=== PATIENT | female | born 1980 | race Caucasian/White ===

== ENCOUNTER → 2021-05-06 11:53 | Outpatient (CLI) | payer OTHER, SELFPAY ==
[2021-05-06 14:23] LABS: hCG Titer Quant., Serum 251 mIU/mL (1-3)
[2021-05-06 14:27] LABS: Progesterone Level 45.89 ng/mL (See Comment)
== END ==
PROVIDERS: PCP Family Medicine; Referring Provider Obstetrics & Gynecology; Visit Provider Obstetrics & Gynecology
DX: Z34.90 Encounter for supervision of normal pregnancy, unspecified, unspecified trimester (principal)
CPT/HCPCS: 36415; 84144; 84702

== ENCOUNTER → 2021-05-08 10:23 | Outpatient (CLI) | payer OTHER, SELFPAY ==
[2021-05-08 12:37] LABS: Progesterone Level 12.23 ng/mL (See Comment); hCG Titer Quant., Serum 546 mIU/mL (1-3)
== END ==
PROVIDERS: PCP Family Medicine; Referring Provider Obstetrics & Gynecology; Visit Provider Obstetrics & Gynecology
DX: O09.299 Supervision of pregnancy with other poor reproductive or obstetric history, unspecified trimester (principal); Z3A.00 Weeks of gestation of pregnancy not specified
CPT/HCPCS: 36415; 84144; 84702

== ENCOUNTER → 2021-05-30 10:34 | Outpatient (CLI) | payer SELFPAY ==
[2021-05-30 11:44] LABS: Absolute Lymphocyte Count 1.72 X10^3/uL (0.83-4.51); Absolute Neutrophil Count 6.1 X10^3/uL (2.0-7.7); Basophil# 0.03 X10^3/uL; Basophil% 0.4 % (0-1); Eosinophil# 0.12 X10^3/uL; Eosinophils% 1.4 % (0-5); Hematocrit 36.2 % (37-47); Hemoglobin 12.1 g/dL (12.0-15.0); Lymphocyte # 1.72 X10^3/ul (0.83-4.51); Lymphocyte % 20.2 % (19-41); Mean Corp Hgb Conc 33.4 g/dL (32-36); Mean Corpuscular Hgb 27.7 pg (27.0-32.0); Mean Corpuscular Volume 82.8 fL (81-99); Mean Platelet Vol. 8.8 fl (6.2-12.0); Monocyte# 0.53 X10^3/uL; Monocyte% 6.2 % (0-10); NRBC Flagged by Analyzer 0 % (0-5); Neutrophil # 6.09 X10^3/uL (2.7-7.7); Neutrophil % 71.3 % (47-70); Platelet Count 368 K/mm3 (150-450); RBC Distribution Width SD 41.7 fl (35.1-43.9); Red Blood Count 4.37 M/mm3 (4.2-5.4); White Blood Count 8.5 K/mm3 (4.4-11.0)
[2021-05-30 12:07] LABS: Glucose Challenge Gest 1H 50g 175 mg/dL (70-140)
[2021-05-30 12:21] LABS: Rubella IgG Reactive (Nonreactive)
[2021-06-06 16:09] LABS: HPV APTIMA, High Risk Positive (Negative)
== END ==
PROVIDERS: PCP Family Medicine; Referring Provider Obstetrics & Gynecology; Visit Provider Obstetrics & Gynecology
DX: O09.90 Supervision of high risk pregnancy, unspecified, unspecified trimester (principal); O99.210 Obesity complicating pregnancy, unspecified trimester; E66.9 Obesity, unspecified; Z3A.00 Weeks of gestation of pregnancy not specified; Z12.4 Encounter for screening for malignant neoplasm of cervix
CPT/HCPCS: 36415; 82950; 85025; 86762; 86850; 86900; 86901; 87086; 87088; 87624; 88175; G0145

== ENCOUNTER → 2021-07-04 | Outpatient (CLI) | payer OTHER, SELFPAY ==
--- NOTE | 2021-07-04 | IMM_PTH ---
PATIENT: EMILIANO MATA LOC: [facility] U#:[id number] AGE/SX: 41/F ROOM: RE07/04/[address]: Dr. Angelina Simpson DO : 1980 BED: DIS: 07/04/2021 SPEC #: [id number] RECD: 07/05/21 13:47 STATUS: FLOYD REPenny #: [id number] NANETTE: 07/04/21 00:[address]: Angelina Simpson DEPT: IMMUNOHISTOCHEMISTRY RECD BY: Katie Hankins ENTERED: 07/05/21 13:47 SP TYPE: IMMUNO OTHR DR: Dr. Rubio Byrd MD Tissues: Uterine cervix, NOS Procedures: p16 (initial) KI-67 (add) PHYSICIAN & INSTITUTION [place] [id number] SPECIMEN INFORMATION: Tissue Source: Cervix at 12 o?clock Clinical Info: NELY, HPV positive Specimen Number: [id number] CPT code: 77804, 18471 METHODOLOGY: Deparaffinized sections of prefer/formalin-fixed tissue or PAP/DQ stained slides are incubated with monoclonal/polyclonal antibodies/oligonucleotide probes. Localization is made via biotin free immunoperoxidase method. Appropriate controls are performed and reacted as expected. Results on target cell population are indicated in the following table: RESULTS: ANTIBODY / CLONE RESULT P16 (E6H4) positive, focal patchy staining Ki-67 (30-9) positive, low These tests were developed and their performance characteristics determined by [facility]. They may not have been cleared or approved by the U.S. Food and Drug Administration. The FDA has determined that such clearance or approval is not necessary. The above immunohistochemical/dualISH markers are ordered and reviewed by the Pathologist. INTERPRETATION: Cervix at 12 o?clock, biopsy: Mild squamous dysplasia. TAVIA:malena 07/05/2021
--- NOTE | 2021-07-04 | CER_PTH ---
PATIENT: EMILIANO MATA LOC: [facility] U#:[id number] AGE/SX: 41/F ROOM: RE07/04/[address]: Dr. Angelina Simpson DO : 1980 BED: DIS: 07/04/2021 SPEC #: [id number] RECD: 07/04/21 12:35 STATUS: FLOYD TRISTANPenny #: [id number] NANETTE: 07/04/21 00:[address]: Angelina Simpson DEPT: SURGICAL PATHOLOGY RECD BY: Desmond Ham ENTERED: 07/04/21 12:36 SP TYPE: CERV OTHR DR: Dr. Rubio Byrd MD Tissues: Uterine cervix, NOS Procedures: Surgery Specimen Level IV HEADER OPERATION: Colposcopy PRE-OP DIAGNOSIS: LGSIL, HPV positive TISSUE SUBMITTED: 12 o?clock MICROSCOPIC DIAGNOSIS Cervix, 12 o?clock, biopsy: Focal mild squamous dysplasia with HPV changes (LGSIL, ANGELIQUE I). Focal acute and chronic inflammation. See comment. TAVIA:malena 07/05/2021 COMMENT Immunohistochemistry ([id number]) for surrogate HPV marker (p16) supports the above diagnosis. MICROSCOPIC DESCRIPTION Slides are reviewed. GROSS DESCRIPTION Received in fixative is one container labeled with the patient's name and designated 12 o'clock. The specimen consists of one irregular fragment of light clark soft tissue that measures 0.5 x 0.5 x 0.1 cm. The specimen is totally submitted in one cassette. / TAVIA:malena 07/04/21 TC:5 CPT: 53099
== END | disposition home or self-care (01) ==
LOC: LABSPEC 12:29
PROVIDERS: PCP Family Medicine; Visit Provider Obstetrics & Gynecology
DX: N87.0 Mild cervical dysplasia (principal)
CPT/HCPCS: 88305; 88341; 88342

== ENCOUNTER → 2021-07-08 07:01 | Outpatient (CLI) | payer OTHER, SELFPAY ==
[2021-06-24 13:26] LABS: Glucose Challenge Gest 1H 50g 153 mg/dL (70-140)
[2021-07-08 08:21] LABS: Glucose GTT-Gestation. Fasting 95 mg/dL (<105)
[2021-07-08 09:35] LABS: Glucose GTT-Gestational 1 Hr 205 mg/dL (<190)
[2021-07-08 09:51] LABS: Glucose GTT-Gestational 2 Hr 167 mg/dL (<165)
[2021-07-08 11:22] LABS: Glucose GTT-Gestational 3 Hr 85 L (<145)
== END ==
PROVIDERS: Nurse Practitioner Women's Health; Obstetrics & Gynecology; PCP Family Medicine; Referring Provider Obstetrics & Gynecology; Visit Provider Obstetrics & Gynecology
DX: Z13.1 Encounter for screening for diabetes mellitus (principal)
CPT/HCPCS: 36415; 82950; 82951; 82952

== ENCOUNTER 2021-07-24 12:13 | Outpatient (RCR) | payer SELFPAY | END 2021-08-02 23:59 | LOC: DC 12:13 | PROVIDERS: PCP Family Medicine; Visit Provider Nurse Practitioner Women's Health | DX: O24.419 Gestational diabetes mellitus in pregnancy, unspecified control (principal); Z3A.00 Weeks of gestation of pregnancy not specified | CPT/HCPCS: 97802 ==

== ENCOUNTER 2021-07-31 11:00 | Outpatient (RCR) | payer SELFPAY | END 2021-08-02 23:59 | LOC: DC 11:00 | PROVIDERS: PCP Family Medicine; Visit Provider Nurse Practitioner Women's Health | DX: O24.419 Gestational diabetes mellitus in pregnancy, unspecified control (principal); Z3A.00 Weeks of gestation of pregnancy not specified ==

== ENCOUNTER 2021-08-14 08:30 | Outpatient (RCR) | payer SELFPAY | END 2021-09-02 23:59 | LOC: DC 08:30 | PROVIDERS: PCP Family Medicine; Visit Provider Nurse Practitioner Women's Health | DX: O24.419 Gestational diabetes mellitus in pregnancy, unspecified control (principal); Z3A.00 Weeks of gestation of pregnancy not specified ==

== ENCOUNTER 2021-08-15 08:15 | Outpatient (CLI) | payer SELFPAY ==
--- NOTE | 2021-08-15 08:17 | US_ITS ---
STUDY: SECOND AND THIRD TRIMESTER OBSTETRICAL ULTRASOUND REASON FOR EXAM: Female, 41 years old 20 week anatomy scan LMP: 04/04/2021 TECHNIQUE: Transabdominal and Transvaginal TECHNICAL QUALITY: Adequate. PRIOR ULTRASOUND: None. FINDINGS: There is a single intrauterine fetus. The fetus is in a breech presentation. There is demonstrated cardiac activity with a heart rate of 155 bpm. There is a normal amniotic fluid volume. The largest amniotic fluid pocket measures 3.1 cm x 2.8 cm. The amniotic fluid index (ZO) is within normal limits. The placenta is anterior in location and is not low lying. There are Grade 1 placental changes. The cervix measures 4.1 cm in length. The bilateral adnexal regions are normal. BIOMETRY: BPD: 4.3 cm: 18 weeks, 6 days HC: 16.6 cm: 19 weeks, 1 days AC: 13.2 cm: 18 weeks, 4 days FL: 2.8 cm: 18 weeks, 4 days CI: 76% FL/BPD: 66% FL/HC: FL/AC: 21% HC/AC: 1.25 age by current US: 18 weeks, 5 days. DEX by current US: 01/11/2022. Estimated weight: 254 grams, +/- 38 grams, 30 %. Age by LMP: 19 weeks, 0 days. DEX by LMP: 01/09/2022. ANATOMY: Gender: Male Cranium: Normal lateral ventricles. Normal choroid plexus. Normal cerebellum. Normal cisterna magna. Normal face, nose and lips. Chest: Normal 4-chamber heart. Abdomen/Pelvis: Normal diaphragm. Normal stomach. Normal abdominal wall. Normal cord insertion. Normal 3 vessel cord. Placental cord insertion is marginal. Normal kidneys. Normal bladder. Spine: Limited visualization of the spine due to the positioning. Extremities: Normal bilateral upper extremities. Normal bilateral lower extremities. IMPRESSION: Single live intrauterine gestation with mean gestational age of 18 weeks and 5 days. Limited visualization of the spine due to the position. Marginal cord insertion and the placenta. Electronically Signed: Dayron Handley MD at 12:28 EST , Service support , STUDY: FIRST TRIMESTER OBSTETRICAL ULTRASOUND REASON FOR EXAM: Female, 41 years old 20 week anatomy scan LMP: 04/04/2021 TECHNIQUE: Transvaginal TECHNICAL QUALITY: Adequate. PRIOR ULTRASOUND: None. FINDINGS: The cervical length measures 4.1 cm. US/OB Anatomy Scan IMPRESSION: Cervical measurement is 4.1 cm Electronically Signed: Dayron Handley MD at 12:28 EST , Service support ,
== END 2021-08-15 23:59 | disposition short-term general hospital (02) ==
PROVIDERS: PCP Family Medicine; Referring Provider Obstetrics & Gynecology; Visit Provider Obstetrics & Gynecology
DX: O09.90 Supervision of high risk pregnancy, unspecified, unspecified trimester (principal); Z3A.00 Weeks of gestation of pregnancy not specified
CPT/HCPCS: 76805; 76817

== ENCOUNTER 2021-09-09 13:50 | Outpatient (CLI) | payer SELFPAY, OTHER ==
--- NOTE | 2021-09-09 13:58 | US_ITS ---
STUDY: SECOND AND THIRD TRIMESTER OBSTETRICAL ULTRASOUND - LIMITED REASON FOR EXAM: Female, 41 years old anatomy follow up spine views LMP: 04/04/2021. PRIOR ULTRASOUND: Comparison is made with prior examination dated 08/15/2021. TECHNIQUE: Transabdominal TECHNICAL QUALITY: Adequate. FINDINGS: There is a single intrauterine fetus. The fetus is in an transverse lie with the head on the maternal left side. There is demonstrated cardiac activity with a heart rate of 138 bpm. There is a normal amniotic fluid volume. The largest amniotic fluid pocket measures 6.7 cm. The amniotic fluid index (ZO) is within normal limits. The placenta is anterior in location and is not low lying. There are Grade 0 placental changes. The cervix measures 5.6 cm in length. BIOMETRY: Age by LMP: 20 weeks, 4 days. DEX by LMP: 01/09/2022.. Imaging of the cervical, thoracic and lumbar sacral spines was performed. No abnormality is seen. US/OB Limited (No Biometrics) IMPRESSION: Normal appearance of the spine. Electronically Signed: Dayron Handley MD at 15:41 EST ,
== END 2021-09-09 23:59 | disposition home or self-care (01) ==
PROVIDERS: PCP Family Medicine; Referring Provider Nurse Practitioner Women's Health; Visit Provider Nurse Practitioner Women's Health
DX: O09.92 Supervision of high risk pregnancy, unspecified, second trimester (principal); Z3A.19 19 weeks gestation of pregnancy
CPT/HCPCS: 76815

== ENCOUNTER 2021-10-09 12:05 | Outpatient (CLI) | payer OTHER, SELFPAY ==
[2021-10-09 13:48] LABS: Absolute Lymphocyte Count 1.95 X10^3/uL (0.83-4.51); Absolute Neutrophil Count 6.9 X10^3/uL (2.0-7.7); Basophil# 0.03 X10^3/uL; Basophil% 0.3 % (0-1); Eosinophil# 0.14 X10^3/uL; Eosinophils% 1.4 % (0-5); Hematocrit 36.9 % (37-47); Lymphocyte # 1.95 X10^3/ul (0.83-4.51); Lymphocyte % 20.1 % (19-41); Mean Corp Hgb Conc 32.5 g/dL (32-36); Mean Corpuscular Hgb 28.2 pg (27.0-32.0); Mean Corpuscular Volume 86.6 fL (81-99); Mean Platelet Vol. 9.2 fl (6.2-12.0); Monocyte# 0.68 X10^3/uL; NRBC Flagged by Analyzer 0 % (0-5); Neutrophil # 6.86 X10^3/uL (2.7-7.7); Neutrophil % 70.8 % (47-70); Platelet Count 354 K/mm3 (150-450); RBC Distribution Width CV 13.6 % (11.6-14.6); RBC Distribution Width SD 42.4 fl (35.1-43.9); Red Blood Count 4.26 M/mm3 (4.2-5.4); White Blood Count 9.7 K/mm3 (4.4-11.0)
== END 2021-10-09 23:59 | disposition home or self-care (01) ==
LOC: LAB 12:07
PROVIDERS: PCP Family Medicine; Visit Provider Obstetrics & Gynecology
DX: O09.90 Supervision of high risk pregnancy, unspecified, unspecified trimester (principal); Z3A.00 Weeks of gestation of pregnancy not specified
CPT/HCPCS: 36415; 85025

== ENCOUNTER 2021-11-14 08:44 | Outpatient (CLI) | payer SELFPAY, OTHER ==
--- NOTE | 2021-11-14 08:45 | US_ITS ---
STUDY: SECOND AND THIRD TRIMESTER OBSTETRICAL ULTRASOUND - LIMITED REASON FOR EXAM: Female, 41 years old growth @ 32 and 36 weeks LMP: 04/04/2021. PRIOR ULTRASOUND: Comparison is made with prior study dated 09/09/2021. TECHNIQUE: Transabdominal TECHNICAL QUALITY: Adequate. FINDINGS: There is a single intrauterine fetus. The fetus is in a cephalic presentation. There is demonstrated cardiac activity with a heart rate of 134 bpm. There is a normal amniotic fluid volume. The largest amniotic fluid pocket measures 7.81 cm. The amniotic fluid index (ZO) is 20.4 cm. The placenta is anterior in location and is not low lying. There are Grade 1 placental changes. The cervix measures 3.5 cm in length. BIOMETRY: BPD: 7.83 cm: 31 weeks, 3 days HC: 29.82 cm: 33 weeks, 1 days AC: 27.87 cm: 32 weeks, 0 days FL: 5.97 cm: 31 weeks, 1 days Age by LMP: 32 weeks, 0 days. DEX by LMP: 01/09/2022. age by prior US: 31 weeks, 5 days. DEX by prior US: 01/11/2022. age by current US: 32 weeks, 0 days. DEX by current US: 01/09/2022. Estimated weight: 1827 grams, +/- 260 grams, 31 percentile. US/OB Limited With Biometrics IMPRESSION: Single live intrauterine gestation with mean gestational age of 31 weeks and 5 days. The measurements obtained today following within the normal expected range. Electronically Signed: Dayron Handley MD at 10:17 EDT ,
== END 2021-11-14 23:59 | disposition home or self-care (01) ==
LOC: US 08:45
PROVIDERS: PCP Family Medicine; Referring Provider Nurse Practitioner Women's Health; Visit Provider Nurse Practitioner Women's Health
DX: O09.90 Supervision of high risk pregnancy, unspecified, unspecified trimester (principal)
CPT/HCPCS: 76816

== ENCOUNTER → 2021-12-12 | Outpatient (CLI) | payer SELFPAY, OTHER ==
--- NOTE | 2021-12-12 08:55 | US_ITS ---
STUDY: SECOND AND THIRD TRIMESTER OBSTETRICAL ULTRASOUND REASON FOR EXAM: Female, 41 years old growth LMP: 04/04/2021 TECHNIQUE: Transabdominal TECHNICAL QUALITY: Adequate. PRIOR ULTRASOUND: Comparison is made with prior study 11/14/2021. FINDINGS: There is a single intrauterine fetus. The fetus is in a cephalic presentation. There is demonstrated cardiac activity with a heart rate of 133 bpm. There is a normal amniotic fluid volume. The largest amniotic fluid pocket measures 4.6 cm. The amniotic fluid index (ZO) is 12.63 cm. The placenta is anterior in location and is not low lying. There are Grade 1 placental changes. The cervix measures 3.3 cm in length. The adnexal regions are not visualized. BIOMETRY: BPD: 8.69 cm: 35 weeks, 1 days HC: 32.83 cm: 37 weeks, 3 days AC: 32.83 cm: 36 weeks, 6 days FL: 6.69 cm: 34 weeks, 3 days CI: 75% FL/BPD: 77% FL/HC: FL/AC: 20% HC/AC: 1.00 age by current US: 36 weeks, 0 days. DEX by current US: 01/09/2022. Estimated weight: 2832 grams, +/- 413 grams, 52 %. age by prior US: 36 weeks, 0 days. DEX by prior US: 01/09/2022. Age by LMP: 30 weeks, 0 days. DEX by LMP: 01/09/2022. A thin linear membrane is seen in the right upper quadrant of the uterus. This may represent either chorionic amniotic separation versus possible amniotic band. US/OB Limited With Biometrics IMPRESSION: Single live uterine gestation with a gestational age of 36 weeks. The measurements obtained today following the normal expected range. Thin linear membrane is seen in the right upper quadrant of the uterus. Electronically Signed: Dayron Handlye MD at 15:22 EDT ,
== END | disposition home or self-care (01) ==
LOC: OPUS 08:45 → US 08:47
PROVIDERS: PCP Family Medicine; Referring Provider Nurse Practitioner Women's Health; Visit Provider Obstetrics & Gynecology
DX: O09.90 Supervision of high risk pregnancy, unspecified, unspecified trimester (principal)
CPT/HCPCS: 76816; 87077; 87081; 87186

== ENCOUNTER 2021-12-15 17:46 | Inpatient (IN) | payer SELFPAY, OTHER ==
[2021-12-15] VITALS (35 sets, daily range): BP systolic 118–159; BP diastolic 57–87; PULSE 86–126; RESP 16; TEMP 36.2–37.3; O2SAT 93–100; BMI 49.1
[2021-12-15] MEDS: Lactated Ringers 1,000 ML 999 ML IV ×2 (18:04→23:55)
[2021-12-15 18:43] LABS: Absolute Neutrophil Count 8.5 X10^3/uL (2.0-7.7); Basophil# 0.03 X10^3/uL; Basophil% 0.3 % (0-1); Eosinophil# 0.14 X10^3/uL; Eosinophils% 1.2 % (0-5); Hematocrit 36.1 % (37-47); Hemoglobin 12.2 g/dL (12.0-15.0); Lymphocyte % 15.1 % (19-41); Mean Corp Hgb Conc 33.8 g/dL (32-36); Mean Corpuscular Hgb 28.1 pg (27.0-32.0); Mean Corpuscular Volume 83.2 fL (81-99); Mean Platelet Vol. 9.2 fl (6.2-12.0); Monocyte# 0.74 X10^3/uL; Monocyte% 6.6 % (0-10); NRBC Flagged by Analyzer 0 % (0-5); Neutrophil # 8.53 X10^3/uL (2.7-7.7); Platelet Count 304 K/mm3 (150-450); RBC Distribution Width CV 13.7 % (11.6-14.6); RBC Distribution Width SD 41.6 fl (35.1-43.9); Red Blood Count 4.34 M/mm3 (4.2-5.4); White Blood Count 11.2 K/mm3 (4.4-11.0)
[2021-12-15 19:07] LABS: AST(SGOT) 10 U/L (15-37); Alanine Aminotransfer ALT/SGPT 18 U/L (13-56); Creatinine, Serum 0.46 mg/dL (0.55-1.02); EST Glomerular Filtration Rate 161 mL/min (>60); Est Glom Filt Rate - Afr Amer 194 mL/min (>60); Estimated Creatinine Clearance 128.58 ml/min; Uric Acid 4.6 mg/dL (2.6-6.0)
[2021-12-15 19:19] LABS: Fibrinogen 605 mg/dl (203-444)
[2021-12-15] MEDS: fentaNYL-bupivacaine (epidural) 100 ML BAG EPIDURAL (19:25)
[2021-12-15 19:28] LABS: Protein, Urine (Random) 34.9 mg/dL (<11.9); Protein:Creat Ratio 405 mg/g CRE (0-200)
[2021-12-15 19:40] LABS: Bedside Glucose 91 mg/dL (74-106)
[2021-12-15] MEDS: Lactated Ringers 1,000 ML 200 ML IV (19:45)
[2021-12-15 20:06] LABS: Bedside Glucose 85 mg/dL (74-106)
--- NOTE | 2021-12-15 20:13 | HP.PCM.OB_ITS ---
HPI - General General Date of Admission: 12/15/21 HPI Narrative EMILIANO MATA, is a 41 F who presents with PPROM bloody fluid 3 cm dilated regular ctx good fm diabetes controlled Maternal Data Information EDX Calculator Estimated Delivery Date Method Current WG Current Estimate 01/09/22 Ultrasound #1 36w 3d Other Estimates 01/02/22 LMP (Certain) 37w 3d PFSH PFSH Medical History (Updated 12/15/21 @ 20:[address] Sondra Sesay MD) Gestational diabetes Marginal insertion of umbilical cord Home Medications progesterone micronized 100 mg vaginal insert 1 insert VAGINAL BID 70 Days #60 ea 05/09/21 [Rx Last Taken Unknown] multivitamin 1 tab PO DAILY 05/17/21 [History Last Taken Unknown] promethazine 12.5 mg tablet 12.5 mg PO TID PRN #30 tab 05/17/21 [Rx Last Taken Unknown] blood-glucose meter #1 ea 07/09/21 [Rx Last Taken Unknown] blood sugar diagnostic #50 ea 10/09/21 [Rx Last Taken Unknown] Allergy/AdvReac Type Severity Reaction Status Date / Time No Known Allergies Allergy Verified 12/12/21 11:22 Family History Grandmother Breast cancer Father Myocardial infarction Surgical History H/O dilation and curettage Social History household members: family housing: house number of children: 2 Smoking Status: Never smoker second hand exposure: No substance use type: does not use seatbelt use: always do you feel safe at home: Yes History 8 Elective abortions Hx Para 2 Spontaneous abortions 5 Hx # Term Pregnancies Ectopic pregnancies Hx # Pregnancies Multiple births # of living children 2 Past Pregnancies Del. Date Name GA/Weeks Outcome Route Bth Weight Infant Gen Labor Lgth Anesthesia Del Locatn Provider FOB Unknown 04/19/02- Farzana 38 live - full term 7lbs 8.5 oz Female [facility] [address]. May Geller Unknown 04/06/12- Julito 40 live - full term 8lbs 3o z [facility] Delivery Date: no complications Linad Sykesily Delivery Date: no complications Stefany Sykes Visit Details Expected Delivery Route/Plan Labor Preferences- CB/BF classes: no labor support person: Yimi labor intervention preferences: [] pain management options preferred: limited intervention preferred cut cord/dad catch: cord maybe : yes PP control planned: discussed discussed possible routes of delivery and associated risks: [] special requests: [] Plans Covid status: Flu vaccine: declines Tdap vaccine: declines Rhogam: na LARC form signed: yes Problem list reviewed and updated with the most current plan of care details and appropriate orders placed. Relevant counseling for the gestational age provided. Continue routine care and follow up unless otherwise noted in visit notes/problem list details OB Flowsheet Initial Weight: Not Recorded Date -?-?-?-?-?-?-?-?-?-?-?-?- EGA Weight BP Urine Prot -?-?-?-?-?-?-?-?-?-?-?-?- Glucose FHR FuHt Pres Dilation -?-?-?-?-?-?-?-?-?-?-?-?- Effaced St Visit Note 05/30/21 -?-?-?-?-?-?-?-?-?-?-?-?- 8w 0d 253 lb 2 oz 130/80 -?-?-?-?-?-?-?-?-?-?-?-?- -?-?-?-?-?-?-?-?-?-?-?-?- CRL 8w0d, one we ek off from LMP. New DEX given. 06/24/21 -?-?-?-?-?-?-?-?-?-?-?-?- 11w 4d 254 lb 6 oz 124/68 Trac e -?-?-?-?-?-?-?-?-?-?-?-?- Negative 166 -?-?-?-?-?-?-?-?--?-?-?-?- No VB, LOF. Br US confirm live IUP. Will repeat 1 hr GCT today. Declines flu vaccine. Order [facility] anatomy US. 07/04/21 -?-?-?-?-?-?-?-?-?-?-?-?- 13w 0d 253 lb 6 oz 130/70 Nega tive -?-?-?-?-?-?-?-?-?-?-?-?- Negative -?-?-?-?-?-?-?-?-?-?-?-?- 07/24/21 -?-?-?-?-?-?-?-?-?-?-?-?- 15w 6d 252 lb 4 oz 100/80 Nega tive -?-?-?-?-?-?-?-?-?-?-?-?- Negative 138 -?-?-?-?-?-?-?-?-?-?-?-?- JV- no cramping or spotting. [place] results were ANGELIQUE 1, rpt pap 1 year. 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 glucose levels are normal. anatomy scan done to day. results are pending. 09/13/21 -?-?-?-?-?-?-?-?-?-?-?-?- 23w 1d 256 lb 102/80 -?-?-?-?-?-?-?-?-?-?-?-?- 145 -?-?-?-?-?-?-?-?-?-?-?-?- SM- no vb lof go od fm no reuglar ctx 10/09/21 -?-?-?-?-?-?-?-?-?-?-?-?- 26w 6d 261 lb 110/80 Negative -?-?-?-?-?-?-?-?-?-?-?-?- Negative 147 26 -?-?-?-?-?-?-?-?-?-?-?-?- JV- glucose leve ls are perfect. fasting under 100 or at 100 and 2 hr pp under 140 (ave 1-teens) 10/23/21 -?-?-?-?-?-?-?-?-?-?-?-?- 28w 6d 263 lb 124/68 Negative -?-?-?-?-?-?-?-?-?-?-?-?- Negative 139 29 -?-?-?-?-?-?-?-?-?-?-?-?- MH-No Vb, LOF. G ood FM. Reviewed BS and WNL. 11/06/21 -?-?-?-?-?--?-?-?-?-?-?-?- 30w 6d 260 lb 6 oz 100/78 Nega tive -?-?-?-?-?-?-?-?-?-?-?-?- Negative -?-?-?-?-?-?-?-?-?-?-?-?- JV- no lof, vagi nal bleeding, or dec fm. GLucose levels are excellent currently. no need for medicadtion. 32 week growth scan in 2 weeks. 11/20/21 -?-?-?-?-?-?-?-?-?-?-?-?- 32w 6d 263 lb 4 oz 110/82 Nega tive -?-?-?-?-?-?-?-?-?-?-?-?- Negative 140 36 -?-?-?-?-?-?-?-?-?-?-?-?- JV- no lof, vagi nal bleeding or dec fm. ZO 20 and growth normal. will rpt at 36 weeks. glucose levels are all normal. 12/04/21 -?-?-?-?-?-?-?-?-?-?-?-?- 34w 6d 269 lb 117/80 Negative -?-?-?-?-?-?-?-?-?-?-?-?- Negative 140 37 -?-?-?-?-?-?-?-?-?-?-?-?- JV- no lof, vagi nal bleeding, or dec fm. nst reactive. glucose levels are all normal. 12/12/21 -?-?-?-?-?-?-?-?-?-?-?-?- 36w 0d 267 lb 8 oz 110/82 Nega tive -?-?-?-?-?-?-?-?-?-?-?-?- Negative 130 38 0 -?-?-?-?-?-?-?-?-?-?-?-?- JV- no lof, vagi nal bleeding, or dec fm. gbs collected, NST reactive. fasting glucose levels are 90's - 100 and 2 hrpp are 100-110's 12/15/21 -?-?-?-?-?-?-?-?-?-?-?-?- 36w 3d 268 lb 11.896 oz 159 /80 124/77 129/71 139/69 129/73 132/73 131/75 128/61 126/62 118/57 122/60 132/67 134/73 134/73 128/62 119/60 128/68 Cancelled -?-?-?-?-?-?-?-?-?-?-?-?- -?-?-?-?-?-?-?-?-?-?-?-?- NST FHR Rate Baby A Baseline: 140 Variability:: Moderate Accelerations:: 15 x 15 Decelerations:: Early and Variable (isolated) NST Reactive:: Yes FHR Category:: Category II Uterine Activity:: q3-5 ROS Constitutional Constitutional: Reports systems reviewed and no addt'l complaints, except as documented ENT HEENT: Reports systems reviewed and no addt'l complaints, except as documented Cardiovascular Cardiovascular: Reports systems reviewed and no addt'l complaints, except as documented Respiratory/Chest Respiratory/Chest: Reports systems reviewed and no addt'l complaints, except as documented Gastrointestinal Gastrointestinal: Reports systems reviewed and no addt'l complaints, except as documented and nausea; Denies abdominal pain Genitourinary Genitourinary: Reports systems reviewed and no addt'l complaints, except as documented, contractions Details: present and frequency (regular ) and movement Details: present Musculoskeletal Musculoskeletal: Reports systems reviewed and no addt'l complaints, except as documented Integumentary Integumentary: Reports as per HPI Neurologic Neurologic: Reports systems reviewed and no addt'l complaints, except as documented Endocrine Endocrinology: Reports systems reviewed and no addt'l complaints, except as documented Vital Signs Vital Signs Vital Signs: 12/15/21 18:01 12/15/21 18:18 12/15/21 18:22 Temperature 98.3 F Temperature Source Temporal Pulse Rate 99 88 90 Respiratory Rate Blood Pressure 159/80 H 124/77 H Blood Pressure Mean BP Systolic 159 124 BP Diastolic 80 77 Blood Pressure Source Blood Pressure Position Blood Pressure Location Pulse Ox 93 97 Oxygen Delivery Method 12/15/21 18:33 12/15/21 18:49 12/15/21 19:04 Temperature Temperature Source Pulse Rate 93 97 91 Respiratory Rate Blood Pressure 129/71 H 139/69 H 129/73 H Blood Pressure Mean BP Systolic 129 139 129 BP Diastolic 71 69 73 Blood Pressure Source Blood Pressure Position Blood Pressure Location Pulse Ox Oxygen Delivery Method 12/15/21 19:07 12/15/21 19:12 12/15/21 19:13 Temperature Temperature Source Pulse Rate 94 103 H Respiratory Rate Blood Pressure 132/73 H Blood Pressure Mean BP Systolic 132 BP Diastolic 73 Blood Pressure Source Blood Pressure Position Blood Pressure Location Pulse Ox 98 99 Oxygen Delivery Method 12/15/21 19:18 12/15/21 19:22 12/15/21 19:26 Temperature Temperature Source Pulse Rate 99 99 98 Respiratory Rate Blood Pressure 131/75 H 128/61 H Blood Pressure Mean BP Systolic 131 128 BP Diastolic 75 61 Blood Pressure Source Blood Pressure Position Blood Pressure Location Pulse Ox 98 97 Oxygen Delivery Method 12/15/21 19:28 12/15/21 19:32 12/15/21 19:33 Temperature 97.8 F Temperature Source Temporal Pulse Rate 96 97 Respiratory Rate Blood Pressure 126/62 H 118/57 L Blood Pressure Mean BP Systolic 126 118 BP Diastolic 62 57 Blood Pressure Source Blood Pressure Position Blood Pressure Location Pulse Ox 98 98 Oxygen Delivery Method 12/15/21 19:37 12/15/21 19:38 12/15/21 19:42 Temperature Temperature Source Pulse Rate 94 90 Respiratory Rate Blood Pressure 122/60 H 132/67 H Blood Pressure Mean BP Systolic 122 132 BP Diastolic 60 67 Blood Pressure Source Blood Pressure Position Blood Pressure Location Pulse Ox 97 98 Oxygen Delivery Method 12/15/21 19:48 12/15/21 19:49 12/15/21 19:52 Temperature Temperature Source Pulse Rate 101 H 100 101 H Respiratory Rate Blood Pressure 134/73 H Blood Pressure Mean BP Systolic 134 BP Diastolic 73 Blood Pressure Source Blood Pressure Position Blood Pressure Location Pulse Ox 99 99 Oxygen Delivery Method 12/15/21 19:56 12/15/21 19:58 12/15/21 19:59 Temperature 99.1 F Temperature Source Temporal Pulse Rate 99 86 86 Respiratory Rate 16 Blood Pressure 134/73 H 128/62 H Blood Pressure Mean 93 BP Systolic 128 BP Diastolic 62 Blood Pressure Source Monitor Blood Pressure Position Semi-Fowlers Blood Pressure Location Right Arm Pulse Ox 98 99 Oxygen Delivery Method Room Air 12/15/21 20:03 12/15/21 20:08 12/15/21 20:09 Temperature Temperature Source Pulse Rate 91 92 86 Respiratory Rate Blood Pressure 119/60 128/68 H Blood Pressure Mean BP Systolic 119 128 BP Diastolic 60 68 Blood Pressure Source Blood Pressure Position Blood Pressure Location Pulse Ox 98 97 Oxygen Delivery Method Weight Weight: 268 lb 11.896 oz Body Mass Index (BMI) 49.1 Physical Exam Const alert, oriented x3 and healthy appearing Constitutional Narrative: uncomfortable with contractions HEENT normocephalic and moist oral mucous membranes Head and Scalp: atraumatic Neck full ROM, no lymphadenopathy, supple and thyroid normal General: trachea midline Thyroid: thyroid normal Lymph Lymphatic: no lymphadenopathy noted Chest inspection of chest normal Resp normal respiratory effort Cardio regular rate GI normal to inspection, nondistended, normoactive bowel sounds, soft to palpation and non-tender Inspection: gravid external exam normal Bimanual Exam - Vag & Uterus: uterus non-tender Manual OB Exam: estimated gestational size appropriate, presentation cephalic, dilated 3, effaced 70 and station -2 Extremity normal to inspection General Extremity: Negative for edema Skin no rashes or lesions noted Neuro deep tendon reflexes 2+ bilaterally Motor Exam: strength 5/5 throughout and clonus absent Psych mental status grossly normal Labs Labs Labs: Blood Type A POSITIVE Antibody Screen NEGATIVE Hct 36.1 % (37-47) L Hgb 12.2 g/dL (12.0-15.0) Pap Smear Negative Obstetrics US Syphilis Total Ab Pending Rubella IgG Antibody Reactive (Nonreactive) Hep Bs Antigen Pending HIV 1&2 Antibody Pending Glucose 1 Hr 50 gm 153 mg/dL (70-140) H Group B Strep DNA POSITIVE (Negative-) H Assessment & Plan (1) Marginal insertion of umbilical cord: COMMENT: growth US at 32 & 36 wks, 11/14 nl growth (2) Gestational diabetes mellitus (GDM) affecting : COMMENT: s/p nutrition. declined endocrine cs unless blood sugars are uncontrolled. 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 nl anatomy. SP labs, declined std labs initially, agreed to be done at delivery. hg normal (10) Vagina bleeding: COMMENT: fibrinogen 600 on admission, normal cbc. monitor, reassuring FHTs (11) premature rupture of membranes (PPROM) with unknown onset of labor: (12) Positive GBS test: COMMENT: pcn PLAN: admit epidural now due to bleeding and patient desired. monitor bleeding, alerted anesthesia. overall reassuring. monitor BS per diabetic protocol gbs prophylaxis
[2021-12-15 20:45] LABS: HIV - WCH Non-Reactive (Nonreactive); Hepatitis B Surface Antigen Non-Reactive (Nonreactive); Hepatitis C Antibody Non-Reactive (Nonreactive)
[2021-12-15 21:06] LABS: Bedside Glucose 84 mg/dL (74-106)
[2021-12-15 22:20] LABS: Bedside Glucose 80 mg/dL (74-106)
[2021-12-15] MEDS: Lactated Ringers 500 ML 999 ML IV (22:23)
[2021-12-15 22:59] LABS: Chlamydia Trachomatis by PCR Negative (Negative); Neisserai gonorrhoeae by PCR Negative (Negative); Probe Check PASS; Sample Adequacy Control PASS; Specimen Processing Control PASS
[2021-12-15] MEDS: Penicillin G 3,000,000 Units 50 ML 100 UNITS IV (23:11)
[2021-12-15] MEDS: Amnioinfusion- 0.9% NS 1,000 ML IV.SOLN. INTRA-UTER (23:18)
[2021-12-15] MEDS: Oxytocin 30 units/NS 500 ml 30 UNITS/500 ML IV.SOLN 334 UNITS IV (23:42)
--- NOTE | 2021-12-15 23:59 | OP.PCM_ITS ---
Assessment & Plan (1) Positive GBS test: COMMENT: pcn (2) premature rupture of membranes (PPROM) with unknown onset of labor: (3) Vagina bleeding: COMMENT: fibrinogen 600 on admission, normal cbc. monitor, reassuring FHTs (4) : QUALIFIERS: Weeks of gestation: 36 weeks Qualified Code(s): Z3A.36 - 36 weeks gestation of COMMENT: nipt carrier and ntd declined. nl anatomy. SP labs, declined std labs initially, agreed to be done at delivery. 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 declined endocrine cs unless blood sugars are uncontrolled. (12) Marginal insertion of umbilical cord: COMMENT: growth US at 32 & 36 wks, 11/14 nl growth (13) Vaginal delivery: COMMENT: IAL PPROM SM boy [place] 36 true knot x 2 Maternal Data Information DEX Calculator Estimated Delivery Date Method Current WG Current Estimate 01/09/22 Ultrasound #1 36w 3d Other Estimates 01/02/22 LMP (Certain) 37w 3d Vaginal Delivery Operative Information Pre-Operative Diagnosis: IAL Post-Operative Diagnosis: same Surgery / Procedure Performed: Spontaneous Vaginal Delivery Type of Anesthesia: Epidural Special Medications: none Estimated Blood Loss: 100 Fluids Replaced: crystalloid Findings Description of Procedure: Patient began pushing and delivered the head in the DASHA presentation. The head was delivered atraumatically and a loose nuchal cord ?1 was identified and the infant delivered through without complication. The anterior and posterior shoulders delivered without complication followed by the rest of the infant and the was placed on the maternal abdomen. Delayed cord clamping was employed for approximately 60 seconds. Cord was clamped and cut and gentle traction was applied to the cord and the placenta delivered spontaneously immediately following it was noted to be intact with three-vessel cord. The perineum and vagina were inspected and noted to have no laceration. EBL was 100 cc. Patient and tolerated delivery well. Presentation: DASHA Amniotic Membrane Rupture Type: Artificial Amniotic Fluid Description: Clear Placental Delivery Description: Spontaneous (small marginal abruption) Placenta Disposition: [facility] Cord Vessel Description: 3 Vessels Cord Entanglement: True Knot(s) (x 2) Delayed Cord Clamping: Yes Post Vaginal Delivery Medications Given After Delivery: IV Pitocin Episiotomy Description: None Laceration: None Complication Complications: None Procedures Urinary/Genital [id number]: [id number] Vaginal Delivery [facility]
[2021-12-16] VITALS (30 sets, daily range): BP systolic 107–144; BP diastolic 56–84; PULSE 86–121; RESP 16; TEMP 36.7–37.3; O2SAT 94–99
--- NOTE | 2021-12-16 00:02 | PCM.DC ---
Discharge Instructions Diet Discharge Diet: No restrictions Activity Discharge Activity: Return to Normal Activity, May Not Drive (while taking narcotic pain medications.) and May Shower May resume sexual activity in: 4-6 weeks Dressing / Incision Call your doctor if your incision/area has: Continuous Slow Oozing, Sudden Increased Bleeding, Increased Pain/ Swelling, Increased Redness and Foul Smelling Discharge Follow Up Care Please Follow Up With: Sondra Sesay MD When: Call [phone] to make an appointment with your doctor in 6 weeks. If you had elevated blood pressure or 4th degree laceration, you will need to be seen in 2 weeks. Test Results: Test results from this visit will be discussed in further detail at your follow-up appointment, if applicable. Discharge Plan Admission Admit Date/Time: 12/15/21 17:46 Attending Provider: Sondra Sesay Primary Care Provider: Rubio Byrd Discharge Orders/Prescriptions Prescriptions: No Action promethazine 12.5 mg tablet 12.5 mg PO TID PRN (Reason: nausea and vomiting) Qty: 30 RF: 1 multivitamin Tablet 1 tab PO DAILY RF: 0 (DME) Blood Glucose Test Strip See Rx Instructions .ROUTE .MEDSUPPLY Qty: 50 RF: 6 progesterone micronized 100 mg insert 1 insert vaginal BID 70 Days Qty: 60 RF: 3 (DME) blood-glucose meter Misc See Rx Instructions .ROUTE .MEDSUPPLY Qty: 1 RF: 0 Referrals / Follow Up: Rubio yBrd MD [Primary Care Provider] - Disposition Disposition (needs filled in before D/C Order can be placed): Home, Self Care
[2021-12-16 00:26] LABS: Bedside Glucose 121 mg/dL (74-106)
[2021-12-16] MEDS: Ibuprofen 600 MG Tablet PO (01:42)
--- NOTE | 2021-12-16 07:48 | PN.OBGYN_ITS ---
Subjective Subjective Patient doing well without complaints. Tolerating PO. Ambulating and voiding without difficulty. Feeding well. Denies chest pain, shortness of breath, calf pain/swelling, fevers, chills, lightheadedness. Objective Data Objective Data Vital Signs: Vital Signs Temp Pulse Resp BP Pulse Ox 98.2 F 86 16 107/64 95 12/16/21 05:00 12/16/21 05:00 12/16/21 05:00 12/16/21 05:00 12/16/21 01:22 Oxygen Delivery Method Room Air Weight: 268 lb 11.896 oz Body Mass Index (BMI) 49.1 Intake & Output: Intake and Output for Last 24 Hours 12/14/21 12/15/21 12/16/21 23:59 23:59 23:59 Intake Total 2485.0 / 2485.0 1500 / 1500 Output Total 800 / 800 Balance 2485.0 / 2485.0 700 / 700 Lab / Micro Data Result Diagrams: 12/15/21 18:05 12/15/21 18:05 Labs: Laboratory Results - last 24 hr 12/15/21 18:05: WBC 11.2 H, RBC 4.34, Hgb 12.2, Hct 36.1 L, MCV 83.2, MCH 28.1, MCHC 33.8, RDW Std Deviation 41.6, RDW Coeff of Dimas 13.7, Plt Count 304, MPV 9.2, Immature Gran % (Auto) 0.800, Neut % (Auto) 76.0 H, Lymph % (Auto) 15.1 L, [place] % (Auto) 6.6, Eos % (Auto) 1.2, Baso % (Auto) 0.3, Absolute Neuts (auto) 8.5 H, Absolute Lymphs (auto) 1.70, Nucleated RBC % 0 12/15/21 18:05: Creatinine 0.46 L, Estim Creat Clear Calc 128.58, Est GFR (MDRD) Af Amer 194, Est GFR (MDRD) Non-Af 161, Uric Acid 4.6, AST 10 L, ALT 18 12/15/21 18:05: Blood Type A POSITIVE, Antibody Screen NEGATIVE 12/15/21 18:05: Hep Bs Antigen Non-Reactive, Hepatitis C Antibody Non-Reactive, HIV 1&2 Antibody Non-Reactive 12/15/21 18:05: Fibrinogen 605 H 12/15/21 18:53: POC Glucose 91 12/15/21 18:54: U Random Total Protein 34.9 H, Urine Creatinine 86.10, Protein/Creatinin Ratio 405 H 12/15/21 18:54: Urine Opiates Screen Cancelled, Urine Methadone Screen Cancelled, Ur Barbiturates Screen Cancelled, Ur Phencyclidine Scrn Cancelled, Ur Amphetamines Screen Cancelled, MDMA (Ecstasy) Screen Cancelled, U Benzodiazepines Scrn Cancelled, Urine Cocaine Screen Cancelled, U Cannabinoids Screen Cancelled, Ur Drug Screen Comment Cancelled 12/15/21 18:54: Chlam trachomat DNA PCR Negative, N.gonorrhoeae DNA (PCR) Negative 12/15/21 18:54: Urine Color Cancelled, Urine Clarity Cancelled, Urine pH Cancelled, Ur Specific [place] Cancelled, U Specif Grav (Refrac) Cancelled, Urine Protein Cancelled, Urine Glucose (UA) Cancelled, Urine Ketones Cancelled, Urine Occult Blood Cancelled, Urine Nitrite Cancelled, Urine Bilirubin Cancelled, Urine Urobilinogen Cancelled, Ur Leukocyte Esterase Cancelled, Urine RBC Cancelled, Urine WBC Cancelled, Ur Squamous Epith Cells Cancelled, Ur Transition Epith Cell Cancelled, Ur Renal Epithelial Cell Cancelled, Calcium Oxalate Crystal Cancelled, Uric Acid Crystals Cancelled, Triple Phos Crystals Cancelled, Other Crystals Cancelled, Amorphous Sediment Cancelled, Urine Bacteria Cancelled, Hyaline Casts Cancelled, Fine Granular Casts Cancelled, Coarse Granular Casts Cancelled, Waxy Casts Cancelled, RBC Casts Cancelled, WBC Casts Cancelled, Urine Mucus Cancelled, Urine Trichomonas Cancelled, Urine Yeast Cancelled 12/15/21 20:00: POC Glucose 85 12/15/21 20:54: POC Glucose 84 12/15/21 22:02: POC Glucose 80 12/16/21 00:05: POC Glucose 121 H Physical Exam Const alert and oriented x3 HEENT normocephalic Eyes PERRL Neck full ROM Resp normal respiratory effort GI soft to palpation GI Narrative: FF below U Assessment & Plan (1) Vaginal delivery: COMMENT: IAL PPROM SM boy [place] 36 true knot x 2 (2) Gestational diabetes mellitus (GDM) affecting : COMMENT: s/p nutrition. declined endocrine cs unless blood sugars are uncontrolled. PLAN: s/p PPD # 1 1. routine post delivery care 2. breast feeding- support given 3. rh positive 4. rubella immune
[2021-12-16 09:06] LABS: Bedside Glucose 84 mg/dL (74-106)
[2021-12-16 09:38] LABS: Syphilis Antibodies Non-reactive
[2021-12-17 01:58] VITALS: BP 118/69; PULSE 73; RESP 14; TEMP 36.4; O2SAT 97
--- NOTE | 2021-12-17 07:53 | PN.OBGYN_ITS ---
Subjective Subjective Patient doing well without complaints. Tolerating PO. Ambulating and voiding without difficulty. Pumping and feeding/baby in SCN due to blood sugars. Denies chest pain, shortness of breath, calf pain/swelling, fevers, chills, lightheadedness. Objective Data Objective Data Vital Signs: Vital Signs Temp Pulse Resp BP Pulse Ox 97.6 F L 73 14 118/69 97 12/17/21 01:58 12/17/21 01:58 12/17/21 01:58 12/17/21 01:58 12/17/21 01:58 Oxygen Delivery Method Room Air Weight: 268 lb 11.896 oz Body Mass Index (BMI) 49.1 Intake & Output: Intake and Output for Last 24 Hours 12/15/21 12/16/21 12/17/21 23:59 23:59 23:59 Intake Total 2485.0 / 2485.0 1500 / 1500 Output Total 800 / 800 Balance 2485.0 / 2485.0 700 / 700 Lab / Micro Data Result Diagrams: 12/15/21 18:05 12/15/21 18:05 Labs: Laboratory Results - last 24 hr 12/15/21 18:05: Syphilis Total Ab Non-reactive 12/16/21 08:59: POC Glucose 84 Physical Exam Const alert and oriented x3 HEENT normocephalic Eyes PERRL Neck full ROM Resp normal respiratory effort GI soft to palpation GI Narrative: FF below U Assessment & Plan (1) Vaginal delivery: COMMENT: IAL PPROM SM boy [place] 36 true knot x 2 (2) Gestational diabetes mellitus (GDM) affecting : COMMENT: s/p nutrition. declined endocrine cs unless blood sugars are uncontrolled. PLAN: s/p PPD # 2 1. routine post delivery care 2. breast feeding- support given 3. rh positive 4. rubella immune 5. glucose readings stable 6. Hotel status today
[2021-12-17 09:10] VITALS: BP 124/71; PULSE 97; RESP 16; TEMP 36.2; O2SAT 99
[2021-12-17 14:53] VITALS: BP 125/79; PULSE 100; RESP 16; TEMP 36.9
== END 2021-12-17 17:55 | disposition home or self-care (01) | DRG 806 ==
PROVIDERS: Admitting Provider Obstetrics & Gynecology; PCP Family Medicine; Visit Provider Obstetrics & Gynecology
DX: O42.913 Preterm premature rupture of membranes, unspecified as to length of time between rupture and onset of labor, third trimester (principal); Z37.0 Single live birth; O98.82 Other maternal infectious and parasitic diseases complicating childbirth; B95.1 Streptococcus, group B, as the cause of diseases classified elsewhere; O24.420 Gestational diabetes mellitus in childbirth, diet controlled; O99.214 Obesity complicating childbirth; Z3A.36 36 weeks gestation of pregnancy; Z87.59 Personal history of other complications of pregnancy, childbirth and the puerperium; E66.9 Obesity, unspecified; O69.81X0 Labor and delivery complicated by cord around neck, without compression, not applicable or unspecified
CPT/HCPCS: 59025; 59050; 82565; 82570; 82962; 84156; 84450; 84460; 84550; 85025; 85384; 86703; 86780; 86803; 86850; 86900; 86901; 87340; 87491; 87591; 99218; J7030; J7120; G0378; J0702

== ENCOUNTER → 2022-01-30 | Outpatient (CLI) | payer SELFPAY ==
[2022-02-05 12:24] LABS: HPV Reflexed? NOT INDICATED
== END | disposition home or self-care (01) ==
LOC: LABSPEC 12:12
PROVIDERS: PCP Family Medicine; Referring Provider Obstetrics & Gynecology; Visit Provider Obstetrics & Gynecology
DX: Z12.4 Encounter for screening for malignant neoplasm of cervix (principal)
CPT/HCPCS: 88175; G0145

== ENCOUNTER → 2022-07-17 | Outpatient (CLI) | payer OTHER, SELFPAY ==
--- NOTE | 2022-07-17 11:00 | EMB_PTH ---
PATIENT: EMILIANO MATA LOC: [facility] U#:[id number] AGE/SX: 42/F ROOM: RE07/17/[address]: Dr. Angelina Simpson DO : 1980 BED: DIS: 07/17/2022 SPEC #: [id number] RECD: 07/17/22 11:53 STATUS: FLOYD REPenny #: [id number] NANETTE: 07/17/22 11:[address]: Angelina Simpson DEPT: SURGICAL PATHOLOGY RECD BY: Paige Gabriel ENTERED: 07/17/22 12:24 SP TYPE: ENDOM BX/C SADE DR: Dr. Rubio Byrd MD Tissues: A - Endometrium, NOS B - Endocervical Procedures: Surgery Specimen Level IV HEADER OPERATION: Colposcopy PRE-OP DIAGNOSIS: ANGELIQUE I, LGSIL TISSUE SUBMITTED: A ? 11 o?clock, B - ECC MICROSCOPIC DIAGNOSIS A. Cervix, 11 o?clock, biopsy: Fragments of endocervical mucosa with moderate to marked acute and chronic inflammation and focal minimal squamous metaplasia. Negative for dysplasia. B. ECC: Fragments of benign endocervical mucosa with chronic inflammation and mucus. Negative for dysplasia. SJ:malena 07/18/2022 COMMENT Clinical correlation and appropriate follow up are necessary. 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 MICROSCOPIC DESCRIPTION Slides are reviewed. GROSS DESCRIPTION A - Received in fixative is one container labeled with the patient's name and designated 11 o'clock. The specimen consists of multiple irregular fragments of light clark soft tissue that in aggregate measure 2 x 0.5 x 0.1 cm. The specimen is totally submitted in one cassette. B - Received in fixative is one container labeled with the patient's name and designated ECC. The specimen consists of a metallic endoscopic cytobrush with adherent minute fragments of clark-red tissue brush in formalin and labeled with the patient's name and and designated per the requisition as brush. The material is dislodged from the brush and submitted for cytology preparation including cell block. / TAVIA:malena 07/17/2022 TC:3 CPT: 91535 x2
== END | disposition home or self-care (01) ==
LOC: LABSPEC 11:58
PROVIDERS: PCP Family Medicine; Referring Provider Obstetrics & Gynecology; Visit Provider Obstetrics & Gynecology
DX: N87.0 Mild cervical dysplasia (principal)
CPT/HCPCS: 88305